=== PATIENT | female | born 1970 | race African-American/Black ===

== ENCOUNTER 2019-07-16 18:11 | Emergency (ER) | payer BC ==
[~2019-07-16] VITALS: Ht 157.5 cm; Wt 75.0 kg
[~2019-07-16 18:11] MED LIST: ASPI-1497 PO; GLIP10TA10 PO; METF-414 PO
[2019-07-16] MEDS ORDERED: ONDANSETRON HCL 4MG/2ML INJ IV STA (20:06)
[2019-07-16] MEDS ORDERED: SODIUM CHLORIDE 0.9% 1,000 ML IV ONE (20:06)
[2019-07-16] MEDS ORDERED: KETOROLAC 30MG/ML VIAL IV STA (20:06)
[2019-07-16 20:21] LABS: BASOPHILS % 0.6 % (0.0-2.0); EOSINOPHILS % 0.4 % (0.0-5.0); HEMATOCRIT. 44.3 % (36.0-48.0); HEMOGLOBIN. 15.2 g/dL (12.0-16.0); LYMPHOCYTES % 15.9 % (20.0-50.0); MEAN CORPUSCULAR HEMOGLOBIN 29.3 pg (28.0-32.0); MEAN CORPUSCULAR VOLUME 85.2 fL (81.0-99.0); MEAN PLATELET VOLUME 9.1 fl (7.4-10.4); MONOCYTES % 6.6 % (2.0-8.0); NEUTROPHILS % 76.5 % (40.0-76.0); PLATELET 256 x1000/uL (130-400); RED CELL DISTRIBUTION WIDTH 13.9 % (11.6-14.6)
[2019-07-16 20:31] LABS: CHLORIDE 102 mEq/L (98-107)
[2019-07-16 20:35] LABS: INR 0.9
[2019-07-16] MEDS ORDERED: MORPHINE SULFATE 2 MG/ML CPJ (NOT FOR IM USE) IV ONE (20:45)
[2019-07-16 20:49] LABS: HCG SCREEN NEGATIVE
[2019-07-16 20:53] VITALS: BP 129/76
[2019-07-16 21:24] LABS: CLARITY URINE CLOUDY (CLEAR); COLOR URINE YELLOW (YELLOW); KETONES URINE NEGATIVE (NEGATIVE); LEUKOCYTE ESTERASE URINE 2+ (NEGATIVE); NITRITE URINE POSITIVE (NEGATIVE); OCCULT BLOOD URINE TRACE (NEGATIVE); PROTEIN URINE 2+ (NEGATIVE); SPECIFIC GRAVITY URINE 1.016 (1.005-1.030)
[2019-07-16] MEDS ORDERED: CEFTRIAXONE 1 G PREMIX 50 ML IV ONE (22:00)
[2019-07-16] MEDS ORDERED: IOHEXOL-300 100 ML BOTTLE ONE (22:54)
== END 2019-07-17 00:19 | disposition home or self-care (01) ==
LOC: ER 18:11
DX: N39.0 Urinary tract infection, site not specified (principal); E11.9 Type 2 diabetes mellitus without complications; I10 Essential (primary) hypertension; Z79.899 Other long term (current) drug therapy; Z79.82 Long term (current) use of aspirin
CPT/HCPCS: 36415; 71045; 74177; 80053; 81003; 83690; 84703; 85025; 85610; 87077; 87086; 87186; 96361; 96365; 96375; 99285; J0696; J1885; J2270; J2405; J7030; Q9967

== ENCOUNTER 2019-12-14 11:06 | Emergency (ER) | payer BC ==
[~2019-12-14] VITALS: Ht 157.5 cm; Wt 72.5 kg
[2019-12-14] MEDS ORDERED: CLONIDINE 0.1MG TABLET PO ONE (11:30)
[2019-12-14] MEDS ORDERED: LISINOPRIL 5MG TABLET PO ONE (11:30)
[2019-12-14 12:10] LABS: BASOPHILS % 0.9 % (0.0-2.0); EOSINOPHILS % 1.2 % (0.0-5.0); HEMATOCRIT. 40.6 % (36.0-48.0); HEMOGLOBIN. 13.6 g/dL (12.0-16.0); LYMPHOCYTES % 38.5 % (20.0-50.0); MEAN CORPUSCULAR HEMOGLOBIN 29.1 pg (28.0-32.0); MEAN CORPUSCULAR VOLUME 87.1 fL (81.0-99.0); MEAN PLATELET VOLUME 9.6 fl (7.4-10.4); MONOCYTES % 6.1 % (2.0-8.0); NEUTROPHILS % 53.3 % (40.0-76.0); PLATELET 212 x1000/uL (130-400); RED BLOOD CELL COUNT 4.66 mill/uL (4.2-5.4); RED CELL DISTRIBUTION WIDTH 14.1 % (11.6-14.6)
[2019-12-14 12:21] LABS: CHLORIDE 105 mEq/L (98-107)
[2019-12-14 17:12] LABS: CLARITY URINE CLOUDY (CLEAR); COLOR URINE YELLOW (YELLOW); KETONES URINE NEGATIVE (NEGATIVE); LEUKOCYTE ESTERASE URINE TRACE (NEGATIVE); NITRITE URINE NEGATIVE (NEGATIVE); OCCULT BLOOD URINE NEGATIVE (NEGATIVE); PROTEIN URINE 2+ (NEGATIVE); SPECIFIC GRAVITY URINE 1.027 (1.005-1.030)
[2019-12-14 17:25] LABS: *COCAINE SCREEN URINE NEGATIVE (NEGATIVE); METHADONE URINE SCREEN NEGATIVE (NEGATIVE); OPIATES URINE SCREEN NEGATIVE (NEGATIVE); PHENCYCLIDINE URINE SCREEN NEGATIVE (NEGATIVE)
[2019-12-14 17:26] LABS: *AMPHETAMINES SCREEN URINE NEGATIVE (NEGATIVE); *BARBITURATES SCREEN URINE NEGATIVE (NEGATIVE); *BENZODIAZEPINES SCREEN URINE NEGATIVE (NEGATIVE)
[2019-12-14 17:29] LABS: CANNABINOID URINE SCREEN PRESUMTIVE POSITIVE (NEGATIVE)
[2019-12-14 17:41] VITALS: BP 152/88
== END 2019-12-14 17:45 | disposition home or self-care (01) ==
LOC: ER 11:06
DX: R42 Dizziness and giddiness (principal); R55 Syncope and collapse; E86.0 Dehydration; E11.65 Type 2 diabetes mellitus with hyperglycemia; I10 Essential (primary) hypertension; Z79.82 Long term (current) use of aspirin; Z79.899 Other long term (current) drug therapy
CPT/HCPCS: 36415; 71045; 80053; 80305; 81003; 82962; 83880; 84484; 85025; 93005; 99285

== ENCOUNTER 2020-02-14 13:49 | Emergency (ER) | payer BC ==
[~2020-02-14] VITALS: Ht 157.5 cm; Wt 73.0 kg
[2020-02-14 14:09] VITALS: BP 122/92
[2020-02-14] MEDS ORDERED: IBUPROFEN 600MG TABLET PO ONE (16:00)
== END 2020-02-14 16:29 | disposition home or self-care (01) ==
LOC: ER 13:49
DX: R51.9 Headache, unspecified (principal); M19.90 Unspecified osteoarthritis, unspecified site; I10 Essential (primary) hypertension; E11.9 Type 2 diabetes mellitus without complications; F41.9 Anxiety disorder, unspecified; K21.9 Gastro-esophageal reflux disease without esophagitis; F12.10 Cannabis abuse, uncomplicated; Z98.890 Other specified postprocedural states; Z79.82 Long term (current) use of aspirin
CPT/HCPCS: 82962; 93005; 99283

== ENCOUNTER 2024-09-07 17:21 | Emergency (ER) | payer SELFPAY ==
[~2024-09-07] VITALS: Ht 157.5 cm; Wt 80.0 kg
[~2024-09-07 17:21] MED LIST changes: -GLIP10TA10 PO; +GLIP10TA17 PO
[2024-09-07 17:30] VITALS: O2SAT 98
[2024-09-07] MEDS ORDERED: CYCL5TAB3 MT (20:58)
[2024-09-07] MEDS ORDERED: LIDO700A30 TP (20:58)
[2024-09-07 21:28] VITALS: BP 175/94; PULSE 80; RESP 16; TEMP 36.7; O2SAT 98
== END 2024-09-07 21:28 | disposition home or self-care (01) ==
LOC: ER 17:21
DX: M62.838 Other muscle spasm (principal); E11.9 Type 2 diabetes mellitus without complications; I10 Essential (primary) hypertension; F41.9 Anxiety disorder, unspecified; F12.90 Cannabis use, unspecified, uncomplicated; K21.9 Gastro-esophageal reflux disease without esophagitis; Z79.899 Other long term (current) drug therapy; Z98.890 Other specified postprocedural states
CPT/HCPCS: 71111; 99284